=== PATIENT | male | born 1985 | race Caucasian/White ===

== ENCOUNTER → 2017-06-01 | Outpatient (CLI) | payer OTHER ==
--- NOTE | 2017-06-02 10:42 | Diagnostic Imaging Report ---
MRI of the right ankle without contrast. History: Ankle pain. Strain. Trauma. Decreased range of motion Technique: Utilizing a high-field 1.5T magnet, the following sequences were acquired: PD FS in all 3 planes with additional axial PD. Comparison: None. Findings: Achilles tendon and plantar fascia: The Achilles tendon and plantar fascia are normal. Cartilage and bone: There is a 2 mm osteochondral lesion at the posterior medial talar dome with mild bone marrow edema best seen on coronal series 4 and 17. No free fragmentation or instability. There is bone marrow edema in the medial malleolus and in the adjacent medial talus likely due to a contusion. No cortical fracture is seen. Medial ankle: There is a sprain of the deltoid ligament complex with soft tissue edema. The majority of the fibers are intact. The medial flexor tendons are intact. Lateral ankle: There is a full-thickness tear of the anterior talofibular and calcaneofibular ligaments. The posterior talofibular ligaments are intact. There is an effusion/synovitis in the anterolateral gutter with an adjacent peripheral 3.0 cm superficial hematoma best seen on coronal series 4 image 15 and axial series 2 image 11. The syndesmotic ligaments are intact. The peroneal tendons are normal. Anterior ankle: The anterior extensor tendons are normal. Other findings: There is a tibiotalar joint effusion and synovitis. Impression: Full-thickness tear of the anterior talofibular and calcaneofibular ligaments. There is an effusion/synovitis in the anterolateral gutter with an adjacent peripheral 3.0 cm superficial hematoma. 2 mm osteochondral lesion at the posterior medial talar dome with mild bone marrow edema. No free fragmentation or instability. There is bone marrow edema in the medial malleolus and in the adjacent medial talus likely due to a contusion. No cortical fracture is seen. Sprain of the deltoid ligament complex with soft tissue edema. The majority of the fibers are intact Signed by: Dr. Jw Iqbal M.D. on 06/02/2017 10:39 AM
== END ==
LOC: MRI 16:33
PROVIDERS: ATTEND Family Medicine
DX: S96.911A Strain of unspecified muscle and tendon at ankle and foot level, right foot, initial encounter (principal)